=== PATIENT | male | born 1980 | race African-American/Black ===

== ENCOUNTER 2016-09-16 00:25 | Emergency (ER) | payer SELFPAY ==
--- NOTE | 2016-09-16 04:13 | ER Document Report ---
[id number] Patient TRAVEL OUTSIDE OF THE [place] IN LAST 30 DAYS: No - HPI Patient complains to provider of: Left, Elbow Associated symptoms: Other - See above - General Chief Complaint: Arm Pain Stated Complaint: LEFT ELBOW PAIN Notes: Patient is a 36 year old male who presents to the emergency department complaining of left elbow pain onset 3 days ago. 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 Patient reports he does not normally overexert his left arm. (MOR DIOR) - Related Data Allergies/Adverse Reactions: No Known Allergies Allergy (Verified 08/27/16 02:18) Past Medical History - General Information source: Patient - Social History Smoking Status: Unknown if Ever Smoked Family History: None, Reviewed & Not Pertinent Patient has suicidal ideation: No Patient has homicidal ideation: No Psychiatric Medical History: Reports: Hx Dementia, Hx Depression - Immunizations Hx Diphtheria, Pertussis, Tetanus Vaccination: No Review of Systems - Review of Systems Constitutional: No symptoms reported EENT: No symptoms reported Cardiovascular: No symptoms reported Respiratory: No symptoms reported Gastrointestinal: No symptoms reported Genitourinary: No symptoms reported Male Genitourinary: No symptoms reported Musculoskeletal: See HPI, Joint pain - left elbow Skin: No symptoms reported Hematologic/Lymphatic: No symptoms reported Neurological/Psychological: No symptoms reported -: Yes All other systems reviewed and negative Physical Exam - Vital signs Interpretation: Normal - General General appearance: Appears well, Alert - HEENT Head: Normocephalic, Atraumatic - Respiratory Respiratory status: No respiratory distress Chest status: Nontender Breath sounds: Normal Chest palpation: Normal - Cardiovascular Rhythm: Regular Heart sounds: Normal auscultation Murmur: No - Back Back: Normal, Nontender - Extremities General lower extremity: Normal inspection Elbow: Tender - Tenderness to palpation of lateral aspect of left elbow, Other - No evidence of compartment syndrome - Neurological Neuro grossly intact: Yes Cognition: Normal Orientation: AAOx4 [place] Coma Scale Eye Opening: Spontaneous [place]ani Coma Scale Verbal: Oriented [place] Coma Scale Motor: Obeys Commands Brittani Coma Scale Total: 15 Speech: Normal - Psychological Associated symptoms: Normal affect, Normal mood - Skin Skin Temperature: Warm Skin Moisture: Dry Skin Color: Normal Skin irregularity: negative: Rash, other - petechiae Course - Re-evaluation Re-evalutation: 09/16/16 04:20 Patient presents emergency department 2 day history of left lateral elbow pain. 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 He has pain with Toradol motion of left arm pain at the lateral aspect of the left elbow consistent with tendinitis. He has no pain at the neck shoulder forearm or wrist full range of motion without any difficulty no acute infection radial ulnar x-ray median nerve are intact no focal neurological deficits or neurological abnormality 09/16/16 04:24 09/16/16 04:27 The triage note says the patient has an 86% sat on room air. The patient has no respiratory complaints is sleeping in no acute distress with no difficulty breathing and is here for tendinitis nurses rechecking at the bedside currently and is normal. (RENE MELGAR) - Vital Signs Vital signs: Temp Pulse Resp BP Pulse Ox 97.9 F 87 16 116/68 96 09/16/16 04:57 09/16/16 04:57 09/16/16 04:57 09/16/16 04:57 09/16/16 04:57 Discharge - Discharge Clinical Impression: Tendinitis Condition: Stable Disposition: HOME, SELF-CARE Additional Instructions: Tendonitis The pain you are having is due to tendonitis -- an inflammation around a muscle tendon. It's usually caused by overuse or repeated minor injuries ( strains) of the tendon. Tendonitis can take two to four weeks to heal. In fact, you may actually worsen for a few days despite treatment. Tendonitis is usually treated with rest, local heat, and antiinflammatory medication. Sometimes cold packs are recommended if the tendonitis has just started. If the pain is severe or prolonged, cortisone injections may be required. Call the doctor if pain or swelling become severe, if new discoloration or redness appears, or if numbness is noted. Prescriptions: Naproxen [Naprosyn 375 Mg Tablet] 375 mg PO DAILY #12 tablet Forms: Return to Work Scribe Documentation - Scribe acting as scribe for :Demetrius Melgar Written by Leatha:: leatha Yancey, 09/16/16, [id number]
[2016-09-16 05:06] VITALS: BP 116/68
== END 2016-09-16 04:57 | disposition home or self-care (01) ==
LOC: ER 00:25
DX: M77.9 Enthesopathy, unspecified (principal); M25.522 Pain in left elbow; X58.XXXA Exposure to other specified factors, initial encounter
CPT/HCPCS: 99283

== ENCOUNTER 2016-10-19 01:49 | Emergency (ER) | payer SELFPAY ==
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
[2016-10-19 03:47] VITALS: BP 135/80
== END 2016-10-19 03:44 | disposition home or self-care (01) ==
LOC: ER 01:49
DX: F41.9 Anxiety disorder, unspecified (principal); F17.210 Nicotine dependence, cigarettes, uncomplicated
CPT/HCPCS: 99283

== ENCOUNTER 2017-08-16 22:03 | Emergency (ER) | payer OTHER ==
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
[2017-08-16] MEDS ORDERED: LIDOCAINE 1%/EPINEPHRINE INJ 20 ML VIAL INJ ONE (22:45)
[2017-08-16 23:37] LABS: APPEARANCE,URINE CLEAR; BILIRUBIN,URINE NEGATIVE (NEGATIVE); GLUCOSE, URINE NEGATIVE (NEGATIVE); KETONES,URINE NEGATIVE (NEGATIVE); LEUKOCYTE ESTERASE,URINE NEGATIVE (NEGATIVE); NITRITE,URINE NEGATIVE (NEGATIVE); PROTEIN,URINE NEGATIVE (NEGATIVE); URINE SPECIFIC GRAVITY 1.002; UROBILINOGEN,URINE NEGATIVE mg/dL (<2.0)
[2017-08-16 23:52] LABS: URINE BARBITURATES SCREEN NEGATIVE; URINE METHADONE SCREEN NEGATIVE; URINE OPIATES LOW NEGATIVE; URINE PHENCYCLIDINE SCREEN NEGATIVE
[2017-08-17 02:29] VITALS: BP 126/64
== END 2017-08-17 02:11 | disposition home or self-care (01) ==
LOC: ER 22:03
PROC: 0HQEXZZ Repair Left Lower Arm Skin, External Approach (ICD-10-PCS; principal; 2017-08-16)
DX: S51.812A Laceration without foreign body of left forearm, initial encounter (principal); S81.812A Laceration without foreign body, left lower leg, initial encounter; S81.811A Laceration without foreign body, right lower leg, initial encounter; F14.10 Cocaine abuse, uncomplicated; M79.1 Myalgia; V48.5XXA Car driver injured in noncollision transport accident in traffic accident, initial encounter; W25.XXXA Contact with sharp glass, initial encounter
CPT/HCPCS: 99284; 81001; 80307; 12002; J3490